=== PATIENT | male | born 1975 | race Hispanic/Latino ===

== ENCOUNTER 2019-12-27 03:41 | Emergency (ER) | payer SELFPAY ==
--- NOTE | 2019-12-27 04:09 | Event Note ---
ED Screening Note ED Screening Note: Mr. Garza is a healthy 44 yo male who presents via EMS and police for paranoia and agitation. He told EMS "I am tripping." House mates mentioned that he did acid. He denies drug use. This initial assessment/diagnostic orders/clinical plan/treatment(s) is/are subject to change based on patients health status, clinical progression and re- assessment by fellow clinical providers in the ED. Further treatment and workup at subsequent clinical providers discretion. Patient/guardian urged not to elope from the ED as their condition may be serious if not clinically assessed and managed. Initial orders include: labs, IVF, ativan
[2019-12-27] MEDS ORDERED: LORazepam 2 MG/ML VIAL IV ONE (04:10)
[2019-12-27] MEDS ORDERED: SODIUM CHLORIDE 0.9% 1000 ML 1,000 ML IV ONE (04:10)
[2019-12-27 04:49] LABS: Basophils # (Auto) 0.1 K/mm3 (0.0-0.1); Basophils % (Auto) 1.4 % (0.0-1.8); Eosinophils # (Auto) 0.2 K/mm3 (0.0-0.4); Hematocrit 42.5 % (35.5-45.6); Hemoglobin 14.7 gm/dl (11.8-15.2); Lymphocytes # (Auto) 1.7 K/mm3 (1.2-5.4); Lymphocytes % (Auto) 25.6 % (13.4-35.0); Mean Corpuscular HGB Conc 35 % (32-34); Mean Corpuscular Volume 85 fl (84-94); Monocytes # (Auto) 0.6 K/mm3 (0.0-0.8); Monocytes % (Auto) 8.8 % (0.0-7.3); Platelet Count 256 K/mm3 (140-440); Red Blood Count 4.98 M/mm3 (3.65-5.03)
[2019-12-27 05:14] LABS: Alanine Aminotransferase 16 units/L (7-56); BUN/Creatinine Ratio 15; Blood Urea Nitrogen 15 mg/dL (9-20); Calcium 9.2 mg/dL (8.4-10.2); Hemolysis Index 4
[2019-12-27] MEDS ORDERED: HALOPERIDOL LACTATE 5 MG/1 ML INJ IM PRN (06:43)
[2019-12-27] MEDS ORDERED: LORazepam 2 MG/ML VIAL IM PRN (06:43)
--- NOTE | 2019-12-27 06:44 | Emergency Department Report ---
ED General Adult HPI - General Chief complaint: Anxiety Stated complaint: POSS OD/MH Time Seen by Provider: 12/27/19 06:06 Source: patient, EMS (EMS documentation not available at this time.), RN notes reviewed Mode of arrival: Stretcher Limitations: Other (patient initially intoxicated, and then became clinically sober) - History of Present Illness Initial comments: This patient is a 44-year-old gentleman who is not known to this provider previously, who was brought to the hospital by emergency medical services, with a complaint of possible recreational street acid, street drug ingestion. The patient denies physical pain. He has no medical complaints at this time. He is not homicidal or suicidal. The patient was observed in the emergency room for a few hours, and his mental status and intoxication resolved and improved. At the moment, he is awake, alert, oriented, sober, walking with a steady gait, is asking to be discharged. He is accompanied by a friend/family member, who corroborates that she feels safe to take the patient home. The patient is now denying use of recreational drugs. Severity scale (0 -10): 0 Consistency: now resolved Improves with: none Worsens with: none - Related Data Previous Rx's Medication Instructions Recorded Last Taken Type Naloxone HCl [Narcan Nasal [place]] 4 mg NS PRN PRN #5 spray 12/27/19 Unknown Rx Potassium Chloride [K-Dur] 20 meq PO BID #10 tab 12/27/19 Unknown Rx Allergies Allergy/AdvReac Type Severity Reaction Status Date / Time No Known Allergies Allergy Unverified 12/27/19 04:28 ED Review of Systems ROS: Stated complaint: POSS OD/MH Other details as noted in HPI Constitutional: denies: fever Eyes: denies: eye discharge ENT: denies: congestion Respiratory: denies: wheezing Cardiovascular: denies: syncope Gastrointestinal: denies: abdominal pain Genitourinary: as per HPI Musculoskeletal: as per HPI Skin: as per HPI Neurological: as per HPI Psychiatric: denies: homicidal thoughts, suicidal thoughts ED Past Medical Hx - Past Medical History Previous Medical History?: Yes Additional medical history: unable to obtain - Surgical History Past Surgical History?: Yes Additional Surgical History: unable to obtain - Social History Smoking Status: Never Smoker Substance Use Type: Other - Medications Home Medications: Home Medications Medication Instructions Recorded Confirmed Last Taken Type Naloxone HCl [Narcan Nasal [place]] 4 mg NS PRN PRN #5 spray 12/27/19 Unknown Rx Potassium Chloride [K-Dur] 20 meq PO BID #10 tab 12/27/19 Unknown Rx ED Physical Exam - General Limitations: Other (patient initially slow to respond, appeared to be somewhat intoxicated, however, after period of observation in the emergency room, became more sober, awake, alert, oriented and lucid) General appearance: alert, in no apparent distress - Head Head exam: Present: atraumatic, normocephalic - Eye Eye exam: Present: normal appearance, PERRL, EOMI, other (visual acuity intact to finger counting and color perception at a close distance). Absent: nystagmus - ENT ENT exam: Present: normal exam, normal orophraynx, mucous membranes moist, normal external ear exam - Neck Neck exam: Present: normal inspection, full ROM. Absent: tenderness, meningismus - Respiratory Respiratory exam: Present: normal lung sounds bilaterally. Absent: respiratory distress - Cardiovascular Cardiovascular Exam: Present: regular rate, normal rhythm, normal heart sounds. Absent: bradycardia, tachycardia, irregular rhythm, systolic murmur, diastolic murmur, rubs, gallop - GI/Abdominal GI/Abdominal exam: Present: soft. Absent: distended, tenderness, guarding, rebound, rigid, pulsatile mass - Rectal Rectal exam: Present: deferred - Extremities Exam Extremities exam: Present: normal inspection, full ROM, other (2+ pulses noted in the bilateral upper and lower extremities. There is no long bony tenderness. The pelvis is stable. The muscular compartments are soft. There is no palpa ble cord. There is no redness, pus or streaking.). Absent: pedal edema, calf tenderness - Back Exam Back exam: Present: normal inspection. Absent: tenderness, CVA tenderness (R), CVA tenderness (L), paraspinal tenderness, vertebral tenderness - Neurological Exam Neurological exam: Present: alert, oriented X3, normal gait, other (there is no facial droop. Tongue is midline. Extraocular movements are intact bilaterally. Walking with a steady gait. Speaking in full sentences. Normal appropriate thought content. 5 out of 5 strength in 4 extremities. Sensation is intact to light touch in 4 extremities.). Absent: motor sensory deficit - Psychiatric Psychiatric exam: Present: flat affect. Absent: homicidal ideation, suicidal ideation - Skin Skin exam: Present: warm, dry, intact, normal color. Absent: rash ED Course Vital Signs 12/27/19 12/27/19 12/27/19 04:02 04:16 04:24 Temperature 98.2 F Pulse Rate 111 H 95 H 119 H Respiratory 26 H 16 28 H Rate Blood Pressure Blood Pressure 161/100 [Left] O2 Sat by Pulse 99 99 98 Oximetry 12/27/19 12/27/19 12/27/19 04:30 04:46 05:00 Temperature Pulse Rate 95 H 102 H 92 H Respiratory 19 15 16 Rate Blood Pressure 161/93 167/106 Blood Pressure [Left] O2 Sat by Pulse 100 100 98 Oximetry 12/27/19 12/27/19 12/27/19 05:16 05:30 05:46 Temperature Pulse Rate 92 H 89 98 H Respiratory 16 17 17 Rate Blood Pressure 167/106 167/106 167/106 Blood Pressure [Left] O2 Sat by Pulse 100 100 100 Oximetry 12/27/19 12/27/19 12/27/19 06:00 06:16 06:30 Temperature Pulse Rate Respiratory Rate Blood Pressure 165/90 165/90 165/90 Blood Pressure [Left] O2 Sat by Pulse 96 100 100 Oximetry 12/27/19 12/27/19 12/27/19 06:46 07:00 07:16 Temperature Pulse Rate Respiratory Rate Blood Pressure 167/106 166/93 166/93 Blood Pressure [Left] O2 Sat by Pulse 100 100 100 Oximetry 12/27/19 12/27/19 12/27/19 07:30 07:46 08:00 Temperature Pulse Rate 86 85 86 Respiratory 20 16 13 Rate Blood Pressure 151/82 151/82 160/87 Blood Pressure [Left] O2 Sat by Pulse 99 99 100 Oximetry 12/27/19 12/27/19 12/27/19 08:16 08:30 08:46 Temperature Pulse Rate 97 H 94 H 108 H Respiratory 22 19 16 Rate Blood Pressure 160/87 160/87 160/87 Blood Pressure [Left] O2 Sat by Pulse 99 98 70 L Oximetry ED Medical Decision Making - Lab Data Result diagrams: 12/27/19 04:19 12/27/19 04:19 Vital Signs 12/27/19 12/27/19 12/27/19 04:02 04:16 04:24 Temperature 98.2 F Pulse Rate 111 H 95 H 119 H Respiratory 26 H 16 28 H Rate Blood Pressure Blood Pressure 161/100 [Left] O2 Sat by Pulse 99 99 98 Oximetry 12/27/19 12/27/19 12/27/19 04:30 04:46 05:00 Temperature Pulse Rate 95 H 102 H 92 H Respiratory 19 15 16 Rate Blood Pressure 161/93 167/106 Blood Pressure [Left] O2 Sat by Pulse 100 100 98 Oximetry 12/27/19 12/27/19 12/27/19 05:16 05:30 05:46 Temperature Pulse Rate 92 H 89 98 H Respiratory 16 17 17 Rate Blood Pressure 167/106 167/106 167/106 Blood Pressure [Left] O2 Sat by Pulse 100 100 100 Oximetry 12/27/19 12/27/19 12/27/19 06:00 06:16 06:30 Temperature Pulse Rate Respiratory Rate Blood Pressure 165/90 165/90 165/90 Blood Pressure [Left] O2 Sat by Pulse 96 100 100 Oximetry 12/27/19 12/27/19 12/27/19 06:46 07:00 07:16 Temperature Pulse Rate Respiratory Rate Blood Pressure 167/106 166/93 166/93 Blood Pressure [Left] O2 Sat by Pulse 100 100 100 Oximetry 12/27/19 12/27/19 12/27/19 07:30 07:46 08:00 Temperature Pulse Rate 86 85 86 Respiratory 20 16 13 Rate Blood Pressure 151/82 151/82 160/87 Blood Pressure [Left] O2 Sat by Pulse 99 99 100 Oximetry 12/27/19 12/27/19 12/27/19 08:16 08:30 08:46 Temperature Pulse Rate 97 H 94 H 108 H Respiratory 22 19 16 Rate Blood Pressure 160/87 160/87 160/87 Blood Pressure [Left] O2 Sat by Pulse 99 98 70 L Oximetry Lab Results 12/27/19 12/27/19 12/27/19 Range/Units 04:19 04:19 04:19 WBC 6.5 (4.5-11.0) K/mm3 RBC 4.98 (3.65-5.03) M/mm3 Hgb 14.7 (11.8-15.2) gm/dl Hct 42.5 (35.5-45.6) % MCV 85 (84-94) fl MCH 30 (28-32) pg MCHC 35 H (32-34) % RDW 14.0 (13.2-15.2) % Plt Count 256 (140-440) K/mm3 Lymph % (Auto) 25.6 (13.4-35.0) % [place] % (Auto) 8.8 H (0.0-7.3) % Eos % (Auto) 3.0 (0.0-4.3) % Baso % (Auto) 1.4 (0.0-1.8) % Lymph # 1.7 (1.2-5.4) K/mm3 [place] # 0.6 (0.0-0.8) K/mm3 Eos # 0.2 (0.0-0.4) K/mm3 Baso # 0.1 (0.0-0.1) K/mm3 Seg Neutrophils % 61.2 (40.0-70.0) % Seg Neutrophils # 4.0 (1.8-7.7) K/mm3 Sodium 142 (137-145) mmol/L Potassium 3.2 L (3.6-5.0) mmol/L Chloride 104.1 (98-107) mmol/L Carbon Dioxide 23 (22-30) mmol/L Anion Gap 18 mmol/L BUN 15 (9-20) mg/dL Creatinine 1.0 (0.8-1.5) mg/dL Estimated GFR > 60 ml/min BUN/Creatinine Ratio 15 % Glucose 136 H (75-100) mg/dL Calcium 9.2 (8.4-10.2) mg/dL Magnesium (1.7-2.3) mg/dL Total Bilirubin 0.50 (0.1-1.2) mg/dL AST 19 (5-40) units/L ALT 16 (7-56) units/L Alkaline Phosphatase 65 (35-129) units/L Total Creatine Kinase (55-170) units/L Total Protein 7.1 (6.3-8.2) g/dL Albumin 4.0 (3.9-5) g/dL Albumin/Globulin Ratio 1.3 % Urine Color (Yellow) Urine Turbidity (Clear) Urine pH (5.0-7.0) Ur Specific [place] (1.003-1.030) Urine Protein (Negative) mg/dL Urine Glucose (UA) (Negative) mg/dL Urine Ketones (Negative) mg/dL Urine Blood (Negative) Urine Nitrite (Negative) Urine Bilirubin (Negative) Urine Urobilinogen (<2.0) mg/dL Ur Leukocyte Esterase (Negative) Urine WBC (Auto) (0.0-6.0) /HPF Urine RBC (Auto) (0.0-6.0) /HPF Urine Bacteria (Auto) (Negative) /HPF Urine Sperm (RIGHT OF WAY CLEARER) /HPF Salicylates 0.5 L (2.8-20.0) mg/dL Urine Opiates Screen Urine Methadone Screen Acetaminophen (10.0-30.0) ug/mL Ur Barbiturates Screen Ur Phencyclidine Scrn U Benzodiazepines Scrn Urine Cocaine Screen U Marijuana (THC) Screen Plasma/Serum Alcohol (0-0.07) % 12/27/19 12/27/19 12/27/19 Range/Units 04:19 04:19 04:19 WBC (4.5-11.0) K/mm3 RBC (3.65-5.03) M/mm3 Hgb (11.8-15.2) gm/dl Hct (35.5-45.6) % MCV (84-94) fl MCH (28-32) pg MCHC (32-34) % RDW (13.2-15.2) % Plt Count (140-440) K/mm3 Lymph % (Auto) (13.4-35.0) % [place] % (Auto) (0.0-7.3) % Eos % (Auto) (0.0-4.3) % Baso % (Auto) (0.0-1.8) % Lymph # (1.2-5.4) K/mm3 [place] # (0.0-0.8) K/mm3 Eos # (0.0-0.4) K/mm3 Baso # (0.0-0.1) K/mm3 Seg Neutrophils % (40.0-70.0) % Seg Neutrophils # (1.8-7.7) K/mm3 Sodium (137-145) mmol/L Potassium (3.6-5.0) mmol/L Chloride (98-107) mmol/L Carbon Dioxide (22-30) mmol/L Anion Gap mmol/L BUN (9-20) mg/dL Creatinine (0.8-1.5) mg/dL Estimated GFR ml/min BUN/Creatinine Ratio % Glucose (75-100) mg/dL Calcium (8.4-10.2) mg/dL Magnesium 2.00 (1.7-2.3) mg/dL Total Bilirubin (0.1-1.2) mg/dL AST (5-40) units/L ALT (7-56) units/L Alkaline Phosphatase (35-129) units/L Total Creatine Kinase 241 H (55-170) units/L Total Protein (6.3-8.2) g/dL Albumin (3.9-5) g/dL Albumin/Globulin Ratio % Urine Color (Yellow) Urine Turbidity (Clear) Urine pH (5.0-7.0) Ur Specific [place] (1.003-1.030) Urine Protein (Negative) mg/dL Urine Glucose (UA) (Negative) mg/dL Urine Ketones (Negative) mg/dL Urine Blood (Negative) Urine Nitrite (Negative) Urine Bilirubin (Negative) Urine Urobilinogen (<2.0) mg/dL Ur Leukocyte Esterase (Negative) Urine WBC (Auto) (0.0-6.0) /HPF Urine RBC (Auto) (0.0-6.0) /HPF Urine Bacteria (Auto) (Negative) /HPF Urine Sperm (RIGHT OF WAY CLEARER) /HPF Salicylates (2.8-20.0) mg/dL Urine Opiates Screen Urine Methadone Screen Acetaminophen < 5.0 L (10.0-30.0) ug/mL Ur Barbiturates Screen Ur Phencyclidine Scrn U Benzodiazepines Scrn Urine Cocaine Screen U Marijuana (THC) Screen Plasma/Serum Alcohol < 0.01 (0-0.07) % 12/27/19 12/27/19 Range/Units Unknown Unknown WBC (4.5-11.0) K/mm3 RBC (3.65-5.03) M/mm3 Hgb (11.8-15.2) gm/dl Hct (35.5-45.6) % MCV (84-94) fl MCH (28-32) pg MCHC (32-34) % RDW (13.2-15.2) % Plt Count (140-440) K/mm3 Lymph % (Auto) (13.4-35.0) % [place] % (Auto) (0.0-7.3) % Eos % (Auto) (0.0-4.3) % Baso % (Auto) (0.0-1.8) % Lymph # (1.2-5.4) K/mm3 [place] # (0.0-0.8) K/mm3 Eos # (0.0-0.4) K/mm3 Baso # (0.0-0.1) K/mm3 Seg Neutrophils % (40.0-70.0) % Seg Neutrophils # (1.8-7.7) K/mm3 Sodium (137-145) mmol/L Potassium (3.6-5.0) mmol/L Chloride (98-107) mmol/L Carbon Dioxide (22-30) mmol/L Anion Gap mmol/L BUN (9-20) mg/dL Creatinine (0.8-1.5) mg/dL Estimated GFR ml/min BUN/Creatinine Ratio % Glucose (75-100) mg/dL Calcium (8.4-10.2) mg/dL Magnesium (1.7-2.3) mg/dL Total Bilirubin (0.1-1.2) mg/dL AST (5-40) units/L ALT (7-56) units/L Alkaline Phosphatase (35-129) units/L Total Creatine Kinase (55-170) units/L Total Protein (6.3-8.2) g/dL Albumin (3.9-5) g/dL Albumin/Globulin Ratio % Urine Color Yellow (Yellow) Urine Turbidity Clear (Clear) Urine pH 7.0 (5.0-7.0) Ur Specific [place] 1.012 (1.003-1.030) Urine Protein <15 mg/dl (Negative) mg/dL Urine Glucose (UA) Neg (Negative) mg/dL Urine Ketones Neg (Negative) mg/dL Urine Blood Sm (Negative) Urine Nitrite Neg (Negative) Urine Bilirubin Neg (Negative) Urine Urobilinogen < 2.0 (<2.0) mg/dL Ur Leukocyte Esterase Neg (Negative) Urine WBC (Auto) < 1.0 (0.0-6.0) /HPF Urine RBC (Auto) 4.0 (0.0-6.0) /HPF Urine Bacteria (Auto) 1+ (Negative) /HPF Urine Sperm Few (RIGHT OF WAY CLEARER) /HPF Salicylates (2.8-20.0) mg/dL Urine Opiates Screen Presumptive negative Urine Methadone Screen Presumptive negative Acetaminophen (10.0-30.0) ug/mL Ur Barbiturates Screen Presumptive negative Ur Phencyclidine Scrn Presumptive negative U Benzodiazepines Scrn Presumptive negative Urine Cocaine Screen Presumptive negative U Marijuana (THC) Screen Presumptive negative Plasma/Serum Alcohol (0-0.07) % - EKG Data -: EKG Interpreted by Ms - EKG Data 12/27/19 09:14 There is no prior EKG available for comparison. The EKG shows a sinus rhythm, 91 bpm, normal axis, QTC prolonged, borderline high left ventricular voltages, there is no endorsement of chest pain, the EKG is not consistent with a STEMI - Radiology Data Radiology results: report reviewed, image reviewed ct head negative xr chest negative - Medical Decision Making Differential diagnosis, including not limited to: Intoxication, now resolved, mood disorder, general medical evaluation Assessment and plan: 44-year-old gentleman brought to the emergency room for bizarre behavior, and the concern for recreational ingestion of street acids. The patient is now awake, alert, oriented, sober and walks with a steady gait. He exhibits decision-making capacity at this time. He is not homicidal or suicidal. He is saturating 96, 97% on my examination. The patient is counseled to avoid consumption of recreational drugs. He is accompanied by a friend who feels comfortable to take the patient home. Patient observed in the department for hours, with improvement in mental status and on clinical examination. Screening toxicology studies did not demonstrate any condition that would require administration of antidote. Critical care attestation.: If time is entered above; I have spent that time in minutes in the direct care of this critically ill patient, excluding procedure time. ED Disposition Clinical Impression: General medical exam Disposition: DC-01 TO HOME OR SELFCARE Is pt being admited?: No Does the pt Need Aspirin: No Condition: Stable Additional Instructions: recommend patient avoid consumption of recreational drugs. Recreational drugs may cause disability, , paralysis, loss of quality of life. Recommended patient follow-up with a primary care doctor within the next 7-10 days. Take medications as needed and directed. Avoid consumption of alcohol and sedating substances. Return to the emergency room right away with new, worsening or different symptoms, or symptoms not present on the initial emergency room evaluation. Referrals: [facility] [Provider Group] - 3-5 Days [facility] [Provider Group] - 3-5 Days
--- NOTE | 2019-12-27 07:19 | Cat Scan Report ---
CT head without contrast INDICATION : personality changes, delayed cognition. TECHNIQUE: Axial imaging performed from the skull apex through the skull base without the use of con trast. All CT scans at this location are performed using CT dose reduction for ALARA by means of aut omated exposure control. COMPARISON: CT head from 02/20/2013 FINDINGS: Parenchyma: No acute intracranial hemorrhage or parenchymal abnormality. Ventricles: Ventricles are normal in size and appear symmetric. Soft tissues: Soft tissues including the orbits appear normal. Bones: No acute osseous abnormality. Sinuses: Sinuses and mastoid air cells are clear. IMPRESSION: No acute abnormality. Signer Name: Darren Guillaume MD Signed: 12/27/2019 7:15 AM Workstation Name: [id number]
--- NOTE | 2019-12-27 07:25 | XRay Report ---
CHEST 1 VIEW INDICATION: intox, hypoxia. COMPARISON: None FINDINGS: Support devices: None. Heart: Within normal limits. Lungs/Pleura: No acute air space or interstitial disease. Additional findings: None. IMPRESSION: 1. No acute findings. Signer Name: Darren Guillaume MD Signed: 12/27/2019 7:21 AM Workstation Name: [id number]
[2019-12-27 08:26] LABS: Bacteria,Urine 1+ /HPF (Negative); Bilirubin,Urine NEG (Negative); Blood,Urine SM (Negative); Color,Urine Yellow (Yellow); Protein,Urine <15 mg/dL mg/dL (Negative); Sperm,Urine FEW /HPF (NP); Urobilinogen,Urine < 2.0 mg/dL (<2.0); WBC,Urine < 1.0 /HPF (0.0-6.0)
[2019-12-27 08:44] LABS: Benzodiazepines Screen,Urine PRESUMPTIVE NEGATIVE; Cannabinoid Screen,Urine PRESUMPTIVE NEGATIVE; Cocaine Screen,Urine PRESUMPTIVE NEGATIVE; Methadone Screen,Urine PRESUMPTIVE NEGATIVE; Opiate Screen,Urine PRESUMPTIVE NEGATIVE
[2019-12-27 09:19] VITALS: BP 133/86
[2019-12-27 09:26] LABS: Amphetamine Screen,Urine PRESUMPTIVE POSITIVE
== END 2019-12-27 10:06 | disposition home or self-care (01) ==
LOC: ED 03:41
DX: T50.995A Adverse effect of other drugs, medicaments and biological substances, initial encounter (principal); Z00.00 Encounter for general adult medical examination without abnormal findings; X58.XXXA Exposure to other specified factors, initial encounter; Z79.899 Other long term (current) drug therapy
CPT/HCPCS: 36415; 70450; 71045; 80053; 80307; 80320; 81001; 82550; 83735; 85025; 93005; 93010; 96361; 96374; G0480